=== PATIENT | female | born 2000 | race Caucasian/White ===

== ENCOUNTER 2024-10-13 15:34 | Emergency (ER) | payer OTHER ==
[2024-10-13] MEDS ORDERED: Tetracaine 0.5% PF 4 ML BOT ONE (15:49)
[2024-10-13] MEDS ORDERED: Fluorescein Opthalmic Strip ONE (15:49)
== END 2024-10-13 16:15 | disposition home or self-care (01) ==
LOC: BURERS 15:34
DX: H00.012 Hordeolum externum right lower eyelid (principal)
CPT/HCPCS: 99283